=== PATIENT | female | born 1970 | race Caucasian/White ===

== ENCOUNTER → 2018-10-25 | Outpatient (CLI) | payer OTHER ==
[~2018-10-25] MED LIST: DILT180ER PO; ESCI20 PO; HYDR1TAB94 PO; LORA1 PO; LOSHYD100 PO; POTCHL20ER PO; Zofran Odt8 MG SL
[2018-10-29 15:06] LABS: HPV 16 Negative (Negative); HPV 18 Negative (Negative); HPV OTHER HR TYPES Negative (Negative)
== END | disposition home or self-care (01) ==
LOC: LAB 15:01 → LAB SHORT 15:01
PROVIDERS: Nurse Practitioner Women's Health
DX: Z12.4 Encounter for screening for malignant neoplasm of cervix (principal)
CPT/HCPCS: 87624; G0123

== ENCOUNTER 2023-12-09 12:37 | Emergency (ER) | payer OTHER ==
[~2023-12-09] VITALS: Ht 165.1 cm; Wt 98.4 kg
[2023-12-09 12:45] VITALS: BP 163/107
[2023-12-09] MEDS ORDERED: FOLIC ACID0.4 MG PO (14:59)
[2023-12-09] MEDS ORDERED: DILTIAZEM HCL120 M2 PO (14:59)
[2023-12-09] MEDS ORDERED: TOPI50 PO (15:00)
[2023-12-09] MEDS ORDERED: LOSARTAN POTAS100 M1 PO (15:00)
[2023-12-09] MEDS ORDERED: AMPDEX10 PO (15:01)
[2023-12-09] MEDS ORDERED: LAMOTRIGINE25 M4 PO (15:01)
[2023-12-09] MEDS ORDERED: ALPRAZOLAM110 PO (15:01)
[2023-12-09] MEDS ORDERED: TRIAMCINOLONE ACET 0.1% TOP ONE (15:25)
[2023-12-09] MEDS ORDERED: TRIA15CR3 TOP (16:23)
== END 2023-12-09 16:42 | disposition home or self-care (01) ==
LOC: ER 12:37
DX: L27.0 Generalized skin eruption due to drugs and medicaments taken internally (principal); T42.6X5A Adverse effect of other antiepileptic and sedative-hypnotic drugs, initial encounter; L25.9 Unspecified contact dermatitis, unspecified cause; I10 Essential (primary) hypertension; F32.A Depression, unspecified; F41.9 Anxiety disorder, unspecified; Z88.8 Allergy status to other drugs, medicaments and biological substances; Z79.899 Other long term (current) drug therapy
CPT/HCPCS: A9270

== ENCOUNTER 2025-02-26 19:55 | Emergency (ER) | payer OTHER ==
[~2025-02-26] VITALS: Ht 162.6 cm; Wt 93.0 kg
[~2025-02-26 19:55] MED LIST changes: +ALPRAZOLAM110 PO; +AMPDEX10 PO; +DILTIAZEM HCL120 M2 PO; +FOLIC ACID0.4 MG PO; +LAMOTRIGINE25 M4 PO; +LOSARTAN POTAS100 M1 PO; +TOPI50 PO; +TRIA15CR3 TOP
[2025-02-26 20:37] LABS: BASOPHILS ABSOLUTE AUTO 0.01 K/mm3 (0.00-0.23); BASOPHILS PERCENT AUTO 0 % (0-2); EOSINOPHILS ABSOLUTE AUTO 0.02 K/mm3 (0.00-0.68); EOSINOPHILS PERCENT AUTO 0 % (0-6); Hematocrit 43.5 % (33.0-51.0); Hemoglobin 15.1 g/dL (11.5-16.0); IMMATURE GRAN ABSOLUTE AUTO 0.01 K/mm3 (0.00-0.10); IMMATURE GRAN PERCENT AUTO 0 % (0-1); LYMPHOCYTES ABSOLUTE AUTO 0.85 K/mm3 (0.84-5.20); LYMPHOCYTES PERCENT AUTO 16 % (21-46); MONOCYTES ABSOLUTE AUTO 0.29 K/mm3 (0.16-1.47); MONOCYTES PERCENT AUTO 6 % (4-13); Mean Corpuscular HGB Conc 34.7 g/dL (31.5-36.5); Mean Corpuscular Volume 83 fL (80-100); NEUTROPHILS ABSOLUTE AUTO 4.02 K/mm3 (1.96-9.15); NEUTROPHILS PERCENT AUTO 77 % (41-73); NRBC ABSOLUTE 0.00 K/mm3 (0.00-0.02); NRBC Auto 0.0 /100 WBC (0.0-0.2); Platelet Count 229 K/mm3 (150-400); RDW Coefficient Variation 12.3 % (11.7-14.2); RDW Standard Deviation 37.2 fL (35.1-46.3)
[2025-02-26 20:54] LABS: Ethanol (Alcohol), Blood, Med <3 mg/dL
[2025-02-26 20:55] LABS: Prothrombin Time Results 10.7 Sec (9.7-11.5)
[2025-02-26 21:08] LABS: Alanine Aminotransfer (ALT/SGP 20 U/L (12-78); Albumin, Blood 3.8 g/dL (3.4-5.0); Albumin/Globulin Ratio 1.0 (0.8-1.8); Aspartate Aminotrans (AST/SGOT 21 U/L (12-37); Bilirubin, Total 0.6 mg/dL (0.1-1.0); Blood Urea Nitrogen 13 mg/dL (8-24); CO2, Blood 19 mmol/L (21-32); Calcium, Blood 8.3 mg/dL (8.5-10.1); Chloride, Blood 105 mmol/L (98-108); Creatinine, Blood 0.99 mg/dL (0.40-1.00); Globulin, Blood 4.0 g/dL (2.2-4.0); Glucose, Blood 126 mg/dL (70-99); Sodium, Blood 135 mmol/L (136-145); Total Protein, Blood 7.8 g/dL (6.4-8.2)
[2025-02-26 21:09] LABS: Anion Gap 13 mmol/L (3-11); Potassium, Blood 2.3 mmol/L (3.5-5.5)
[2025-02-26] MEDS ORDERED: Mag Sulfate 1 GM/D5% 100ML 100 ML IV ONE (21:30)
[2025-02-26] MEDS ORDERED: NS 1,000 ML IV SCH (21:30)
[2025-02-26] MEDS ORDERED: POTA10T PO (23:40)
[2025-02-27 01:00] VITALS: BP 117/70
== END 2025-02-27 01:13 | disposition home or self-care (01) ==
LOC: ER 19:55
PROVIDERS: Emergency Medicine
DX: E87.6 Hypokalemia (principal); R20.2 Paresthesia of skin; Z88.8 Allergy status to other drugs, medicaments and biological substances; Z79.899 Other long term (current) drug therapy; I10 Essential (primary) hypertension; Z90.89 Acquired absence of other organs
CPT/HCPCS: 80053; 80320; 82947; 85025; 85610; 85730; 93005; 93010; 96365; 96366; 96375; 99284-25; A9270; J3475; J3480; J7030; J7050